=== PATIENT | male | born 1960 | race Caucasian/White ===

== ENCOUNTER 2021-11-08 16:45 | Emergency (ER) | payer SELFPAY ==
[2021-11-08 16:52] VITALS: BP 150/91; PULSE 88; RESP 18; TEMP 36.3; O2SAT 99
--- NOTE | 2021-11-08 19:32 | PC.NURSE ---
pain radiates down left leg, pt is pacing in room difficulty sitting for extended periods d/t pain
--- NOTE | 2021-11-08 19:43 | ED.BACK ---
HPI - Back Pain/Injury General Chief Complaint: Back Pain/Injury Stated Complaint: Shooting pains down leg from hip, lvl 3 now, was 9 Time Seen by Provider: 11/08/21 19:42 Source: patient History of Present Illness HPI Narrative: Otherwise healthy 60-year-old gentleman presents with worsening left-sided back pain. 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 He noticed of mild strain in the low back that is been there approximately 10 days that he has been dealing with through the use of exercise, stretching and aspirin. Over the last 3 days he is noticing increasing muscle spasm and worsening sciatic pain radiating down the left side into his calf with complaints of calf tightness. He has no fevers, no recent spinal instrumentation, no history of illicit or IV drug use, no swelling to his legs and no actual weakness. He describes no urinary retention or hesitancy and has not having any issues with constipation or diarrhea. He reports no fevers, cough, palpitations, abdominal pain, chest pain. Related Data Previous Rx's Medication Instructions Recorded dexamethasone 4 mg tablet 10 mg PO DAILY #5 tabs 11/08/21 oxycodone-acetaminophen 5 mg-325 1 tab PO Q6H PRN pain #14 tabs 11/08/21 mg tablet Allergies Allergy/AdvReac Type Severity Reaction Status Date / Time No Known Drug Allergies Allergy Verified 11/08/21 16:55 Review of Systems Review of Systems Narrative: Remainder of complete review of systems is otherwise unremarkable except for that included in the HPI. Patient History Social History Smoking Status: Current every day smoker Smoking Status: Current every day smoker alcohol intake frequency: 0-2 drinks per day Exam Initial Vital Signs Initial Vital Signs: Vital Signs Temperature 97.4 F L 11/08/21 16:52 Pulse Rate 88 11/08/21 16:52 Respiratory Rate 18 11/08/21 16:52 Blood Pressure 150/91 H 11/08/21 16:52 Pulse Oximetry 99 11/08/21 16:52 Oxygen Delivery Method 11/08/21 16:52 General: Alert appropriate in mild distress, able to get up from a seated position to standing to moving about the room with minimal pain behaviors Respiratory: Able to speak in full sentences, no obvious respiratory distress Skin: No obvious rashes, warm and dry Spine: Mild muscle spasm left lateral paraspinous muscles, no skin changes. No tenderness midline along the thoracic lumbar sacral spine. Neurologic: Grossly intact no obvious asymmetries or abnormalities, no sensory loss to lower extremities and no overt weakness in lower extremities. Normal reflexes bilaterally at [place] is. Psych: appropriate insight and affect, cooperative Course Orders Ordered: Discontinued Medications Dexamethasone (Dexamethasone 10 Mg/Ml Vial) 10 mg PO NOW ONE Stop: 11/08/21 19:51 Last Admin: 11/08/21 20:07 Dose: 10 mg Documented By: ROMERO Ketorolac Tromethamine (Ketorolac 30 Mg/Ml Vial) 30 mg IM NOW ONE Stop: 11/08/21 19:51 Last Admin: 11/08/21 20:07 Dose: 30 mg Documented By: ROMERO Oxycodone/Acetaminophen (Oxycodone/Acetaminophen 5/325 Tablet) 1 tab PO NOW ONE Stop: 11/08/21 19:51 Last Admin: 11/08/21 20:07 Dose: 1 tab Documented By: ROMERO Oxycodone/Acetaminophen (Oxycodone/Apap 5/325 Prepack) 1 bottle MISC SEEINSTR ONE Stop: 11/08/21 19:51 Last Admin: 11/08/21 20:07 Dose: 1 bottle Documented By: ROMERO Vital Signs Vital signs: Vital Signs - 8 hr 11/08/21 20:34 Pulse Rate 75 Respiratory Rate 18 Blood Pressure 140/70 Pulse Oximetry 98 MDM - Back Pain/Injury MDM Narrative Medical decision making narrative: 60-year-old gentleman with classic presentation for musculo skeletal low back strain with acute muscle spasm and complicating sciatica. He has no red flags that indicate he needs additional imaging at this time. There is no indication of the fevers, pathologic fractures, recent trauma, recent spine instrumentation and no risk factors for epidural abscess or diskitis. He has responded nicely to I am Toradol and a single Percocet. We discussed pain options and will have him complete a 3 day course of dexamethasone for inflammation control and he is given a small prescription for Percocet to help specifically with pain. Did encourage him to be up and moving and he is given an off-work note for 1 day. He is safe for home discharge at this time Discharge Plan Departure Patient Disposition: Home Clinical Impression: Strain of lumbar region Qualifiers: Encounter type: initial encounter Qualified Code(s): S39.012A - Strain of muscle, fascia and tendon of lower back, initial encounter Sciatica Qualifiers: Laterality: left Qualified Code(s): M54.32 - Sciatica, left side Instructions: DI for Low Back Pain, DI for Sciatica Activity Restrictions/Additional Instructions: Thank you for coming in today. I am sorry you are suffering with this back strain. You have been given your initial dose of dexamethasone, a potent steroid to help with inflammation in the emergency department. I will give you 2 additional days of 10 mg of Decadron to help with the inflammation. It is the inflammation that is exacerbating the pain going down the back of your leg and the calf tightness that your noticing. using 400 mg of ibuprofen (2 [id number] pills) and 1 Tylenol every 6 hours can be very helpful in controlling pain, for severe pain using 400 mg of ibuprofen and 1 Percocet will be helpful Using her 10s unit, gentle walking and stretching, ice and heat are all going to be helpful in getting the past this sooner rather than later At this time you do not have any signs or symptoms of life-threatening back pain, infection or reason for additional studies or hospitalization. I wish you the best Prescriptions: New oxycodone-acetaminophen 5-325 mg tablet 1 tab PO Q6H PRN (Reason: pain) Qty: 14 0RF dexamethasone 4 mg tablet 10 mg PO DAILY Qty: 5 0RF Stand Alone Forms: Work Release Note Visit Report Forms: Patient Portal/API
[2021-11-08] MEDS: OXYCODONE/APAP 5/325 PREPACK 1 BOTTLE MISC (20:07)
[2021-11-08] MEDS: KETOROLAC 30 MG/ML VIAL IM (20:07)
[2021-11-08] MEDS: DEXAMETHASONE 10 MG/ML VIAL PO (20:07)
[2021-11-08] MEDS: OXYCODONE/ACETAMINOPHEN 5/325 TABLET 1 TAB PO (20:07)
[2021-11-08 20:34] VITALS: BP 140/70; PULSE 75; RESP 18; O2SAT 98
== END 2021-11-08 20:34 | disposition home or self-care (01) ==
PROVIDERS: Emergency Provider Emergency Medicine
DX: S39.012A Strain of muscle, fascia and tendon of lower back, initial encounter (principal); M54.32 Sciatica, left side
CPT/HCPCS: 96372; 99283; J1100; J1885

== ENCOUNTER 2023-08-18 10:51 | Emergency (ER) | payer OTHER, SELFPAY ==
[2023-08-18] VITALS (15 sets, daily range): BP systolic 142–181; BP diastolic 84–102; PULSE 77–90; RESP 17–31; TEMP 36.6; O2SAT 97–100; BMI 21.9
--- NOTE | 2023-08-18 11:05 | DI.RAD.S_ITS ---
PROCEDURE: XR CHEST 1V INDICATIONS: chest pain TECHNIQUE: One view of the chest was acquired. COMPARISON: None. FINDINGS: Surgical changes and devices: None. Lungs and pleura: Lungs are clear. No pleural effusions or pneumothorax. Mediastinum: Mediastinal contours appear normal. Heart size is normal. Bones and chest wall: No suspicious bony lesions. Overlying soft tissues appear unremarkable. IMPRESSION: No acute cardiopulmonary abnormality is seen. Dictated by: Butch Guzman M.D. on 08/18/2023 at 11:46 Approved by: Butch Guzman M.D. on 08/18/2023 at 11:47
[2023-08-18 11:21] LABS: Add Manual Diff / Slide Review NO; Basophils Absolute Auto 100 /uL (0-100); Basophils Percent Auto 1.2 % (0-2); Eosinophils Absolute Auto 0 /uL (0-450); Eosinophils Percent Auto 0.1 % (2-4); Hematocrit 44.9 % (41-53); Hemoglobin 15.3 g/dL (13.5-17.5); Lymphocytes Absolute Auto 800 /uL (1100-4500); Lymphocytes Percent Auto 12.7 % (25-40); Mean Corpuscular HGB Conc 34.2 % (30-36); Mean Corpuscular Volume 96.5 fL (80-100); Monocytes Absolute Auto 300 /uL (0-900); Monocytes Percent Auto 4.3 % (3-14); Neutrophils Absolute Auto 5200 /uL (1500-7000); Neutrophils Percent Auto 81.7 % (50-75); Platelet Count 252 X10^3/uL (150-400); Red Blood Cell Count 4.65 X10^6/uL (4.5-5.9); Red Cell Distribution Width 13.6 % (11.6-14.8); White Blood Cell Count 6.4 X10^3/uL (4.5-11.0)
[2023-08-18 11:25] LABS: Prothrombin Time 11.8 SECONDS (9.4-12.5)
[2023-08-18 11:27] LABS: PTT Partial Thromboplastin Tim 31 SECONDS (25.1-36.5)
[2023-08-18 11:31] LABS: Alanine Aminotransferase 23 IU/L (<50); Albumin 4.6 g/dL (3.5-5.0); Albumin Globulin Ratio 1.2 (1.0-2.8); Alkaline Phosphatase 51 U/L (38-126); Aspartate Aminotransferase 31 IU/L (17-59); BUN Creatinine Ratio 20.3 (6-22); Bilirubin Total 0.9 mg/dL (0.2-1.3); Blood Urea Nitrogen 16 mg/dL (9-20); Calcium 9.3 mg/dL (8.4-10.2); Carbon Dioxide 24 mmol/L (22-32); Chloride 102 mmol/L (98-107); Creatine Kinase 66 U/L (55-170); Estimated Glomerular Filt Rate > 60 mL/min (>60); Globulin 3.9 g/dL (1.7-4.1); Glucose 130 mg/dL (80-110); HEMOLYSIS < 15 (0-50); Lipase 199 U/L (23-300); Magnesium 1.8 mg/dL (1.6-2.3); Potassium 4.8 mmol/L (3.4-5.1); Sodium 134 mmol/L (137-145); Total Protein 8.5 g/dL (6.3-8.2)
[2023-08-18 11:42] LABS: Troponin I < 0.012 ng/mL (0.01-0.034)
[2023-08-18 15:17] LABS: Troponin I < 0.012 ng/mL (0.01-0.034)
--- NOTE | 2023-08-18 15:32 | ED.CHESTPAIN ---
HPI - Chest Pain General Chief Complaint: Chest Pain Stated Complaint: face twitching legs numb mouth dry sob Time Seen by Provider: 08/18/23 13:43 Source: patient Mode of arrival: Ambulatory History of Present Illness HPI narrative: 62-year-old gentleman who has not had health insurance for at least 10 years and has been at least that long since he is actually seen a physician. 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 He was at work today when he noticed that his hands were all of a sudden shaking he developed a significantly dry mouth noticed that the right arm and leg were briefly numb. The overall sensation was concerning enough that he drove himself to the emergency department for further evaluation. He notes that after being in the ER he is feeling significantly better in the majority of his symptoms have resolved. He has not currently on any medications, reports moderate alcohol use but notes that he did have a bit more last night because friend was visiting. No other recreational drugs and no recent illnesses or hospitalizations. Related Data Allergies Allergy/AdvReac Type Severity Reaction Status Date / Time No Known Drug Allergies Allergy Verified 08/18/23 11:10 Review of Systems Review of Systems Narrative: Pertinent positive and negative findings as per HPI Patient History Social History Smoking Status: Current every day smoker Smoking Status: Current every day smoker tobacco type: vaping alcohol intake frequency: 0-2 drinks per day Substance Use Type: does not use Exam Initial Vital Signs Initial Vital Signs: Vital Signs Pulse Rate 90 08/18/23 11:00 Blood Pressure 181/102 H 08/18/23 11:00 Pulse Oximetry 99 08/18/23 11:00 General: Healthy appearing, in no acute distress. Able to give a complete and coherent history. Well-nourished well-developed HEENT: Dry mucous membranes, normal sclera with reactive pupils, mild right side facial tic Respiratory: Lungs are clear to auscultation, no wheezing no rales no rhonchi. Full and symmetrical air movement Cardiac: Regular rate and rhythm no murmurs no bruits Abdomen: Soft, nontender, good bowel tones, no flank pain Skin: Warm and dry, no rashes Neurologic: Grossly neurologically intact with no obvious asymmetries or abnormalities Extremities: No trauma, well perfused Psych: Cooperative, appropriate insight and affect Course Orders Ordered: ED Orders 08/18/23 11:03 EKG-12 Lead Stat 08/18/23 11:05 XR chest 1V Stat Complete Blood Count AUTO DIFF Stat Comprehensive Metabolic Panel Stat Lipase Stat Magnesium Stat PTT Partial Thromboplastin [place] Stat Prothrombin Time INR Stat Troponin & CK Cardiac Panel Stat 08/18/23 14:46 Trop I [Troponin I] Stat Discontinued Medications Aspirin (Aspirin 81 Mg Chew Tab) 324 mg PO NOW ONE Stop: 08/18/23 11:06 Vital Signs Vital signs: Vital Signs - 8 hr 08/18/23 11:00 08/18/23 11:00 08/18/23 11:06 Temperature 97.9 F Pulse Rate 90 90 Respiratory Rate 17 Blood Pressure 181/102 H 181/102 H Pulse Oximetry 99 100 Oxygen Delivery Method Room Air 08/18/23 11:25 08/18/23 11:25 08/18/23 11:30 Temperature Pulse Rate 77 Respiratory Rate 19 Blood Pressure 163/101 H 160/97 H Pulse Oximetry 98 Oxygen Delivery Method 08/18/23 11:30 08/18/23 11:45 08/18/23 11:45 Temperature Pulse Rate 77 80 Respiratory Rate 20 24 Blood Pressure 148/87 H Pulse Oximetry 97 98 Oxygen Delivery Method 08/18/23 12:00 08/18/23 12:00 08/18/23 12:15 Temperature Pulse Rate 77 Respiratory Rate 31 H Blood Pressure 142/85 H 152/93 H Pulse Oximetry 99 Oxygen Delivery Method 08/18/23 12:15 08/18/23 12:25 08/18/23 12:25 Temperature Pulse Rate 78 77 Respiratory Rate 18 21 Blood Pressure 178/84 H Pulse Oximetry 98 98 Oxygen Delivery Method 08/18/23 12:30 08/18/23 13:00 08/18/23 13:00 Temperature Pulse Rate 77 77 Respiratory Rate 19 21 Blood Pressure 151/88 H Pulse Oximetry 100 98 Oxygen Delivery Method 08/18/23 13:30 08/18/23 14:00 08/18/23 14:00 Temperature Pulse Rate 81 80 Respiratory Rate 19 20 Blood Pressure 143/88 H Pulse Oximetry 99 98 Oxygen Delivery Method 08/18/23 14:30 08/18/23 15:00 08/18/23 15:00 Temperature Pulse Rate 78 78 Respiratory Rate 19 23 Blood Pressure 145/86 H Pulse Oximetry 98 99 Oxygen Delivery Method MDM - Chest Pain Lab Data 08/18/23 11:05 08/18/23 11:05 Labs: Lab Results 08/18/23 08/18/23 Range/Units 11:05 14:46 WBC 6.4 (4.5-11.0) X10^3/uL RBC 4.65 (4.5-5.9) X10^6/uL Hgb 15.3 (13.5-17.5) g/dL Hct 44.9 (41-53) % MCV 96.5 (80-100) fL MCH 33.0 (26-34) PG MCHC 34.2 (30-36) % RDW 13.6 (11.6-14.8) % Plt Count 252 (150-400) X10^3/uL Neut % (Auto) 81.7 H (50-75) % Lymph % (Auto) 12.7 L (25-40) % [place] % (Auto) 4.3 (3-14) % Eos % (Auto) 0.1 L (2-4) % Baso % (Auto) 1.2 (0-2) % Neut # (Auto) 5200 (2805-6460) /uL Lymph # (Auto) 800 L (0281-2569) /uL [place] # (Auto) 300 (0-900) /uL Eos # (Auto) 0 (0-450) /uL Baso # (Auto) 100 (0-100) /uL PT 11.8 (9.4-12.5) SECONDS INR 1.0 (0.9-1.3) APTT 31 (25.1-36.5) SECONDS Sodium 134 L (137-145) mmol/L Potassium 4.8 (3.4-5.1) mmol/L Chloride 102 (98-107) mmol/L Carbon Dioxide 24 (22-32) mmol/L BUN 16 (9-20) mg/dL Creatinine 0.79 (0.66-1.25) mg/dL Estimated GFR > 60 (>60) mL/min BUN/Creatinine Ratio 20.3 (6-22) Glucose 130 H (80-110) mg/dL Calcium 9.3 (8.4-10.2) mg/dL Magnesium 1.8 (1.6-2.3) mg/dL Total Bilirubin 0.9 (0.2-1.3) mg/dL AST 31 (17-59) IU/L ALT 23 (<50) IU/L Alkaline Phosphatase 51 (38-126) U/L Total Creatine Kinase 66 (55-170) U/L Troponin I < 0.012 < 0.012 (0.01-0.034) ng/mL Total Protein 8.5 H (6.3-8.2) g/dL Albumin 4.6 (3.5-5.0) g/dL Globulin 3.9 (1.7-4.1) g/dL Albumin/Globulin Ratio 1.2 (1.0-2.8) Lipase 199 (23-300) U/L MDM Narrative Medical decision making narrative: CC: Acute onset of dry mouth, shaking hands question of right-sided numbness and an overall sensation of ?wrong? Complicating co-morbidities: No medical care for the last 10 years Data collected from: patient Differential considered: Acute coronary syndrome, viral syndrome, panic attack, sepsis, alcohol withdrawal Exam documented above, pertinent findings include: Patient is examined after number of hours in the emergency department and symptoms have entirely resolved. Exam is reassuring Lab Test results independently reviewed as above. Pertinent findings: CBC is unremarkable Metabolic panel is reassuring with normal renal and liver function Independently reviewed EKG: Sinus rhythm at a rate of 79. No acute ischemic changes and no STEMI criteria Imaging studies independently reviewed: Chest x-ray shows no significant cardiopulmonary abnormality, normal cardiac silhouette no evidence of pneumothorax Discussion: 62-year-old gentleman presents with acute onset number of vague symptoms that have now entirely resolved. I do not have a complete explanation however I am not finding any life-threatening abnormalities that would require additional workup or hospitalization. The absence of life-threatening abnormalities are all reviewed with the patient. As his symptoms have completely resolved at this point he to agrees that discharge home is safe. I have recommended follow up with a primary care physician that he does have medical insurance. I recommended checking blood pressures to see if blood pressures outside of the emergency department are appropriate. We also talked about routine screening, daily exercise, limiting alcohol and continuing his smoke-free lifestyle. Questions are answered and he is safe for discharge Discharge Plan Departure Patient Disposition: Home Clinical Impression: Atypical chest pain Instructions: DI for Atypical Chest Pain Activity Restrictions/Additional Instructions: Thank you for coming in today With a constellation of symptoms that you had, I do believe that ER evaluation was appropriate. Sometimes the best that I am able to do from the emergency department is tell you all the things that I did not find. Your workup was quite reassuring, I did not find evidence of heart attack, pneumonia, collapsed lung, significant heart or lung abnormalities. I did find normal liver and kidney function. Your chest x-ray and EKG are reassuring. By the time you and I had a chance to talk, your exam was essentially back to your baseline Fully do not have an explanation for the events today, I do believe that discharge home is safe. Now that you do have insurance I would recommend following up with the primary care physician for routine care and health maintenance. If you find that you are getting worse or develop any new symptoms, please feel free to return to the emergency department for further evaluation. Stand Alone Forms: Patient Portal/API
== END 2023-08-18 15:59 | disposition home or self-care (01) ==
PROVIDERS: Emergency Provider Emergency Medicine
DX: R07.89 Other chest pain (principal); R20.0 Anesthesia of skin
CPT/HCPCS: 36415; 71045; 80053; 82550; 83690; 83735; 84484; 85025; 85610; 85730; 93005; 99283; 99284